=== PATIENT | female | born 1935 | race Caucasian/White ===

== ENCOUNTER → 2017-04-09 | Day surgery (SDC) | payer MEDICARE ==
[~2017-04-09] VITALS: Ht 172.7 cm; Wt 56.7 kg
[~2017-04-09] MED LIST: ASPIR LOW81 MG PO; LIPITOR20 MG PO; VITAMIN D400 I1 PO
--- NOTE | ~2017-04-09 | O ---
[place], [place] OPERATIVE NOTE NAME: JOSÉ HOLDEN UNIT #: [id number] ROOM: DOCTOR: DONN SWAN MD BIRTHDATE: [birth year] DOS: 04/09/2017 PREOPERATIVE DIAGNOSIS: Cataract, left eye. POSTOPERATIVE DIAGNOSIS: Cataract, left eye. OPERATION: Extracapsular cataract extraction by phacoemulsification with posterior chamber intraocular lens implantation, left eye. ANESTHESIA: Monitored standby. OPERATIVE FINDINGS AND PROCEDURE: 2% Xylocaine topical anesthetic gel was applied to the eye in the preop area. The patient was taken to the operating room and prepped and draped in the standard fashion for sterile intraocular surgery. A time out procedure was performed verifying correct patient, correct site and corrects lens with Katelynn Swan M.D. The operating microscope was swung into position and the lid speculum was inserted. Using a Chanel paracentesis blade, a paracentesis was made through clear cornea. Viscoelastic was used to fill the anterior chamber. Using a metal keratome a 2.4 mm self-sealing clear corneal cataract incision was made temporally at the limbus. Using a pre-bent 25 gauge cystotome needle, a standard continuous curvilinear capsulorrhexis was performed. The anterior capsule was removed with forceps. The lens nucleus was hydrodissected and phacoemulsified in the posterior chamber. Cortical material was removed with the irrigation aspiration hand piece and the posterior capsule was then polished with a curet under irrigation. The posterior chamber and capsular bag were filled with viscoelastic. A posterior chamber intraocular lens manufactured by: [employer], Model #[id number], and 23.5 diopters in strength were then inserted into the posterior chamber and within the capsular bag using the lens cartridge and injector system. Viscoelastic was removed using the irrigation aspiration handpiece. The anterior chamber was filled with balanced salt solution through the paracentesis. Both the paracentesis site and cataract incisions were hydrated with BSS and verified to be water-tight and self-sealing. Cefuroxime 1 mg/0.1 mL was injected into the anterior chamber through the paracentesis site. The incision checked to be water-tight using a Weck-Cintia sponge. The integrity of the cataract wound and ocular tension were checked. Lid speculum and drapes were removed. The patient was transferred from the operating room to the recovery room in satisfactory condition. [place], [place] OPERATIVE NOTE NAME: JOSÉ HOLDEN UNIT #: [id number] ROOM: DOCTOR: DONN SWAN MD BIRTHDATE: [birth year] DONN SWAN MD CM:OPRECORD:OPERATIVE NOTE [id number] DONN SWAN MD 04/09/17 1310 interface
[2017-04-09 11:00] VITALS: BP 160/67
[2017-04-09 12:20] VITALS: BP 166/72
[2017-04-09 12:35] VITALS: BP 143/63
[2017-04-09 12:48] VITALS: BP 164/70
== END | disposition home or self-care (01) ==
LOC: SDC 04-07 10:15
DX: H26.9 Unspecified cataract (principal); Z90.49 Acquired absence of other specified parts of digestive tract; Z90.710 Acquired absence of both cervix and uterus; Z98.890 Other specified postprocedural states

== ENCOUNTER → 2017-05-14 | Day surgery (SDC) | payer MEDICARE ==
[~2017-05-14] VITALS: Ht 172.7 cm; Wt 56.7 kg
--- NOTE | ~2017-05-14 | O ---
[place], [place] OPERATIVE NOTE NAME: JOSÉ HOLDEN UNIT #: [id number] ROOM: DOCTOR: DONN SWAN MD BIRTHDATE: [birth year] DOS: 05/14/2017 PREOPERATIVE DIAGNOSIS: Cataract, right eye. POSTOPERATIVE DIAGNOSIS: Cataract, right eye. OPERATION: Extracapsular cataract extraction by phacoemulsification with posterior chamber intraocular lens implantation, right eye. ANESTHESIA: Monitored standby. OPERATIVE FINDINGS AND PROCEDURE: 2% Xylocaine topical anesthetic gel was applied to the eye in the preop area. The patient was taken to the operating room and prepped and draped in the standard fashion for sterile intraocular surgery. A time out procedure was performed verifying correct patient, correct site and corrects lens with Katelynn Swan M.D. The operating microscope was swung into position and the lid speculum was inserted. Using a Chanel paracentesis blade, a paracentesis was made through clear cornea. Viscoelastic was used to fill the anterior chamber. Using a metal keratome a 2.4 mm self-sealing clear corneal cataract incision was made temporally at the limbus. Using a pre-bent 25 gauge cystotome needle, a standard continuous curvilinear capsulorrhexis was performed. The anterior capsule was removed with forceps. The lens nucleus was hydrodissected and phacoemulsified in the posterior chamber. Cortical material was removed with the irrigation aspiration hand piece and the posterior capsule was then polished with a curet under irrigation. The posterior chamber and capsular bag were filled with viscoelastic. A posterior chamber intraocular lens manufactured by: [employer], Model #[id number], and 23.0 diopters in strength were then inserted into the posterior chamber and within the capsular bag using the lens cartridge and injector system. Viscoelastic was removed using the irrigation aspiration handpiece. The anterior chamber was filled with balanced salt solution through the paracentesis. Both the paracentesis site and cataract incisions were hydrated with BSS and verified to be water-tight and self-sealing. Cefuroxime 1 mg/0.1 mL was injected into the anterior chamber through the paracentesis site. The incision checked to be water-tight using a Weck-Cintia sponge. The integrity of the cataract wound and ocular tension were checked. Lid speculum and drapes were removed. The patient was transferred from the operating room to the recovery room in satisfactory condition. [place], [place] OPERATIVE NOTE NAME: JOSÉ HOLDEN UNIT #: [id number] ROOM: DOCTOR: DONN SWAN MD BIRTHDATE: [birth year] DONN SWAN MD CM:OPRECORD:OPERATIVE NOTE [id number] DONN SWAN MD 05/14/17 1555 interface
[2017-05-14 11:41] VITALS: BP 183/75
[2017-05-14 12:16] VITALS: BP 143/57
[2017-05-14 12:30] VITALS: BP 160/92
[2017-05-14 12:44] VITALS: BP 156/68
== END | disposition home or self-care (01) ==
LOC: SDC 05-08 09:30
DX: H26.9 Unspecified cataract (principal); Z95.0 Presence of cardiac pacemaker; Z90.49 Acquired absence of other specified parts of digestive tract; Z90.710 Acquired absence of both cervix and uterus; Z98.890 Other specified postprocedural states; E78.00 Pure hypercholesterolemia, unspecified

== ENCOUNTER 2019-04-25 21:30 | Emergency (ER) | payer MEDICARE ==
[~2019-04-25] VITALS: Ht 172.7 cm; Wt 56.7 kg
[2019-04-26] MEDS ORDERED: TRAMADOL HCL50 MG PO (04:05)
== END 2019-04-26 04:12 | disposition home or self-care (01) ==
LOC: ED 21:30
DX: S92.512A Displaced fracture of proximal phalanx of left lesser toe(s), initial encounter for closed fracture (principal); S92.002A Unspecified fracture of left calcaneus, initial encounter for closed fracture; S66.912A Strain of unspecified muscle, fascia and tendon at wrist and hand level, left hand, initial encounter; S46.912A Strain of unspecified muscle, fascia and tendon at shoulder and upper arm level, left arm, initial encounter; S86.912A Strain of unspecified muscle(s) and tendon(s) at lower leg level, left leg, initial encounter; Z79.899 Other long term (current) drug therapy; Z79.82 Long term (current) use of aspirin; W10.8XXA Fall (on) (from) other stairs and steps, initial encounter; Y93.89 Activity, other specified; Y92.89 Other specified places as the place of occurrence of the external cause; Y99.8 Other external cause status

== ENCOUNTER 2024-06-22 09:48 | Emergency (ER) | payer OTHER ==
[~2024-06-22] VITALS: Ht 167.6 cm; Wt 49.9 kg
[~2024-06-22 09:48] MED LIST changes: +TRAMADOL HCL50 MG PO
[2024-06-22] MEDS ORDERED: OMEPRAZOLE40 MG PO (09:59)
[2024-06-22] MEDS ORDERED: ZESTRIL20 MG PO (10:00)
[2024-06-22 11:08] LABS: POTASSIUM 3.9 mmol/L (3.4-5.1)
[2024-06-22] MEDS ORDERED: PEPCID20 MG PO (11:41)
== END 2024-06-22 11:41 | disposition home or self-care (01) ==
LOC: ED 09:48
DX: K52.1 Toxic gastroenteritis and colitis (principal); T47.1X5A Adverse effect of other antacids and anti-gastric-secretion drugs, initial encounter; Y92.89 Other specified places as the place of occurrence of the external cause; Z90.49 Acquired absence of other specified parts of digestive tract; Z90.710 Acquired absence of both cervix and uterus; Z98.890 Other specified postprocedural states